=== PATIENT | female | born 2005 | race Caucasian/White ===

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

== ENCOUNTER 2024-01-13 14:50 | Emergency (ER) | payer OTHER ==
[~2024-01-13] VITALS: Ht 157.5 cm; Wt 84.4 kg
[~2024-01-13 14:50] MED LIST changes: -ACET-10509 PO; +ACET500T99 PO; +AMOX1TAB8 PO; +VIGOS OP
[2024-01-13 14:57] VITALS: BP 130/74; PULSE 70; RESP 18; TEMP 97.8; O2SAT 100
[2024-01-13] MEDS ORDERED: ACET-9882 PO (16:10)
[2024-01-13] MEDS ORDERED: SULF-59 PO (16:10)
== END 2024-01-13 16:33 | disposition home or self-care (01) ==
LOC: MED 14:50
DX: O90.89 Other complications of the puerperium, not elsewhere classified (principal); R03.0 Elevated blood-pressure reading, without diagnosis of hypertension; Z79.899 Other long term (current) drug therapy
CPT/HCPCS: 99283